=== PATIENT | male | born 1975 | race Caucasian/White ===

== ENCOUNTER 2016-12-01 22:13 | Emergency (ER) | payer MEDICAID ==
[2016-12-01 22:19] VITALS: BP 138/69; PULSE 69; RESP 20; TEMP 98.6
[2016-12-01] MEDS ORDERED: LIDOCAINE 1% INJ 10MG/ML (20 ML MDV) SQ STA (22:29)
--- NOTE | 2016-12-01 22:32 | ED ---
Wound/Laceration HPI - General Chief Complaint: Wound/Laceration Stated Complaint: head lac Time Seen by Provider: 12/01/16 22:21 Source: patient, RN notes reviewed Mode of arrival: ambulatory Limitations: no limitations - History of Present Illness Initial Comments: This is a 41-year-old male who sustained a laceration to his left parietal scalp from a wooden board. He states he was working on a wall when the board came down and struck him on top of the head. He denies any pain. He denies any loss of consciousness, no vision or hearing changes, no neck pain, no other injuries, tetanus status is up-to-date per patient. No other injuries. No immunosuppression. Injury occurred about 1-1/2 hours prior to arrival. - Related Data Home Medications Medication Instructions Recorded Confirmed No Known Home Medications [No 12/01/16 12/01/16 Known Home Medications] Allergies Allergy/AdvReac Type Severity Reaction Status Date / Time No Known Allergies Allergy Verified 12/01/16 22:17 Review of Systems ROS Statement: Those systems with pertinent positive or pertinent negative responses have been documented in the HPI. ROS Other: All systems not noted in ROS Statement are negative. Past Medical History Past Medical History: No Reported History History of Any Multi-Drug Resistant Organisms: None Reported Past Surgical History: No Surgical Hx Reported Past Psychological History: No Psychological Hx Reported Smoking Status: Never smoker Past Alcohol Use History: Occasional Past Drug Use History: None Reported General Exam - General Exam Comments Initial Comments: Well-developed, well-nourished 41-year-old male in no distress Limitations: no limitations General appearance: alert, in no apparent distress Head exam: Present: other (Patient has a 3 cm laceration to left parietal scalp. There is no surrounding tenderness or step-off. No crepitus. No foreign body.) Eye exam: Present: normal appearance ENT exam: Present: normal exam, mucous membranes moist Neck exam: Present: normal inspection, full ROM Respiratory exam: Present: normal lung sounds bilaterally. Absent: respiratory distress, wheezes, rales, rhonchi, stridor Cardiovascular Exam: Present: regular rate, normal rhythm, normal heart sounds. Absent: systolic murmur, diastolic murmur, rubs, gallop, clicks Neurological exam: Present: alert, oriented X3, CN II-XII intact Psychiatric exam: Present: normal affect, normal mood Skin exam: Present: warm, dry Course Vital Signs 12/01/16 22:18 Temperature 98.6 F Pulse Rate 69 Respiratory 20 Rate Blood Pressure 138/69 O2 Sat by Pulse 98 Oximetry Procedures - Laceration Laceration #1 Consent Obtained: verbal consent Time Out Performed: No Indication: laceration Site: scalp, other (Left parietal) Size (cm): 3 Description: linear Depth: simple, single layer Anesthetic Used: lidocaine 1% Anesthesia Technique: local infiltration Amount (mls): 2 Type of Sutures: other ([place]) Number of Sutures: 6 Patient Tolerated Procedure: well, no complications Medical Decision Making - Medical Decision Making Patient arrives with an isolated scalp laceration. No loss of consciousness, no neurologic deficits, no headache. No pain. Patient educated on signs and symptoms of infection and return parameters. Disposition Clinical Impression: Laceration of scalp without complication Disposition: HOME SELF-CARE Condition: Good Instructions: Staple Care (ED), Head Injury (ED) Additional Instructions: Suture removal in 10-11 days Referrals: Domenico Hardy MD [Primary Care Provider] - 1-2 days Time of Disposition: 22:52
[2016-12-01] MEDS ORDERED: DIPH,PERTUS(ACELL)TETVAC-LF 0.5 ML VIAL IM ONE (22:50)
== END 2016-12-01 23:17 | disposition home or self-care (01) ==
LOC: EC 22:13
DX: S01.01XA Laceration without foreign body of scalp, initial encounter (principal); Z23 Encounter for immunization; W20.8XXA Other cause of strike by thrown, projected or falling object, initial encounter; Y93.89 Activity, other specified
CPT/HCPCS: 90715; 99282; 12002; 90471; J2001

== ENCOUNTER → 2017-12-28 | Outpatient (CLI) | payer MEDICAID ==
[2017-12-28 07:10] LABS: Basophils % (A) 0 %; Eosinophils # (A) 0.1 k/uL (0-0.7); Eosinophils % (A) 2 %; HCT 48.2 % (39.0-53.0); HGB 16.9 gm/dL (13.0-17.5); Lymphocytes # (A) 1.2 k/uL (1.0-4.8); Lymphocytes % (A) 38 %; MCH 30.3 pg (25.0-35.0); MCHC 35.2 g/dL (31.0-37.0); MCV 86.1 fL (80.0-100.0); Mean Platelet Volume 8.2; Monocytes # (A) 0.2 k/uL (0-1.0); Monocytes % (A) 6 %; Neutrophils # (A) 1.7 k/uL (1.3-7.7); Neutrophils % (A) 52 %; Platelet Count 185 k/uL (150-450); RDW 13.2 % (11.5-15.5); WBC 3.2 k/uL (3.8-10.6)
[2017-12-28 07:20] LABS: ALT 68 U/L (21-72); AST 38 U/L (17-59); Albumin 4.1 g/dL (3.5-5.0); Alkaline Phosphatase 75 U/L (38-126); Anion Gap 8 mmol/L; Blood Urea Nitrogen 17 mg/dL (9-20); Calcium 9.3 mg/dL (8.4-10.2); Carbon Dioxide 27 mmol/L (22-30); Chloride 104 mmol/L (98-107); Cholesterol 181 mg/dL (<200); Glucose 146 mg/dL (74-99); HDL Cholesterol 25 mg/dL (40-60); Potassium 5.3 mmol/L (3.5-5.1); Sodium 139 mmol/L (137-145); Total Bilirubin 0.8 mg/dL (0.2-1.3); Total Protein 6.8 g/dL (6.3-8.2)
[2017-12-28 07:31] LABS: Triglycerides 879 mg/dL (<150)
[2017-12-28 07:46] LABS: Appearance,Urine Clear (Clear); Bilirubin,Urine Negative (Negative); Blood,Urine Trace (Negative); Color,Urine Yellow; Glucose,Urine (UA) Negative (Negative); Ketones,Urine Negative (Negative); Leukocyte Esterase,Urine Negative (Negative); Mucus,Urine Rare /hpf; Nitrite,Urine Negative (Negative); PH, Urine 5.5 (5.0-8.0); Protein,Urine Negative (Negative); RBC,Urine 1 /hpf (0-5); Specific Gravity,Urine 1.025 (1.001-1.035); Urobilinogen,Urine <2.0 mg/dL (<2.0)
== END | disposition home or self-care (01) ==
LOC: LABWHC1 06:34
PROVIDERS: ATTEND Family Medicine
DX: Z00.01 Encounter for general adult medical examination with abnormal findings (principal)
CPT/HCPCS: 36415; 80053; 80061; 81001; 82306; 85025

== ENCOUNTER → 2018-01-01 | Outpatient (CLI) | payer MEDICAID ==
[2018-01-01 09:23] LABS: Basophils % (A) 1 %; Eosinophils # (A) 0.1 k/uL (0-0.7); Eosinophils % (A) 4 %; HCT 48.6 % (39.0-53.0); HGB 16.8 gm/dL (13.0-17.5); Lymphocytes # (A) 1.2 k/uL (1.0-4.8); Lymphocytes % (A) 35 %; MCH 29.9 pg (25.0-35.0); MCHC 34.5 g/dL (31.0-37.0); MCV 86.8 fL (80.0-100.0); Mean Platelet Volume 7.5; Monocytes # (A) 0.2 k/uL (0-1.0); Monocytes % (A) 5 %; Neutrophils # (A) 1.8 k/uL (1.3-7.7); Neutrophils % (A) 55 %; Platelet Count 170 k/uL (150-450); RDW 13.2 % (11.5-15.5); WBC 3.3 k/uL (3.8-10.6)
== END | disposition home or self-care (01) ==
LOC: LABWHC1 08:44
PROVIDERS: ATTEND Family Medicine
DX: R89.9 Unspecified abnormal finding in specimens from other organs, systems and tissues (principal)
CPT/HCPCS: 36415; 84132; 85025

== ENCOUNTER → 2018-01-03 | Outpatient (CLI) | payer MEDICAID | END | disposition home or self-care (01) | LOC: LABWHC1 09:24 | PROVIDERS: ATTEND Family Medicine | DX: R82.8 Abnormal findings on cytological and histological examination of urine (principal); R31.21 Asymptomatic microscopic hematuria | CPT/HCPCS: 88108 ==

== ENCOUNTER → 2018-02-19 | Outpatient (CLI) | payer MEDICAID ==
--- NOTE | 2018-02-20 08:26 | US ---
EXAMINATION TYPE: US kidneys/renal and bladder DATE OF EXAM: 02/19/2018 COMPARISON: NONE CLINICAL HISTORY: Hematuria R31.21. EXAM MEASUREMENTS: Right Kidney: 12.9 x 5.6 x 5.6 cm Left Kidney: 13.7 x 4.9 x 5.7 cm Right Kidney: No hydronephrosis or masses seen, measures large Left Kidney: No hydronephrosis or masses seen, measures large Bladder: wnl Incidental finding splenomegaly. There is no evidence for hydronephrosis at this point in time. No nephrolithiasis is seen. No amanda s are identified. The urinary bladder is anechoic. Bilateral ureteral jets are seen. Cortical medullary differentiation is maintained. The liver shows a coarse echotexture. IMPRESSION: Splenomegaly. Renal sizes as described. There may be underlying hepatocellular disease, hepatic steat osis.
== END | disposition home or self-care (01) ==
LOC: RADUSWWP 16:05
PROVIDERS: ATTEND Family Medicine
DX: R16.1 Splenomegaly, not elsewhere classified (principal)
CPT/HCPCS: 76770

== ENCOUNTER → 2019-08-06 | Outpatient (CLI) | payer BC ==
--- NOTE | 2019-08-06 07:52 | US ---
EXAMINATION TYPE: US liver DATE OF EXAM: 08/06/2019 COMPARISON: Prior renal ultrasound February 19, 2018 CLINICAL HISTORY: R74.8 abnormal serum levels. EXAM MEASUREMENTS: Liver Length: 19.6 cm Gallbladder Wall: 0.2 cm CBD: 0.4 cm Right Kidney: 13.0 x 4.3 x 5.2 cm Pancreas: Obscured by bowel gas Liver: Coarse, heterogeneous echotexture. Enlarged. Hypoechoic area adjacent to gallbladder measurin g 1.7 x 0.6 x 0.9 cm, probable focal fatty sparing Gallbladder: wnl Evidence for sonographic Mckoy's sign: No CBD: wnl as visualized Right Kidney: No hydronephrosis or masses seen Suboptimal evaluation of pancreas on images saved due to overlying bowel gas per technologist. Liver redemonstrates markedly heterogeneous hyperechoic appearance similar to prior ultrasound. Evaluation for focal masses suboptimal due to the heterogeneity. More hypoechoic area near gallbladder fossa. St [place] favored diffuse fatty infiltration with focal fatty sparing. Gallbladder seen without shadowin g mobile gallstones. No hydronephrosis in the right kidney. IMPRESSION: Marked fatty infiltration of liver is redemonstrated. Patient may benefit with US elastog enrique to further assess.
== END | disposition home or self-care (01) ==
LOC: RADUSWWP 06:53
PROVIDERS: ATTEND Family Medicine
DX: K76.0 Fatty (change of) liver, not elsewhere classified (principal)
CPT/HCPCS: 76705

== ENCOUNTER → 2019-10-17 | Outpatient (CLI) | payer BC ==
[2019-10-17 07:39] LABS: Basophils % (A) 1 %; Eosinophils # (A) 0.1 k/uL (0-0.7); Eosinophils % (A) 2 %; HCT 48.4 % (39.0-53.0); HGB 16.4 gm/dL (13.0-17.5); Lymphocytes % (A) 30 %; MCH 29.5 pg (25.0-35.0); MCHC 33.9 g/dL (31.0-37.0); MCV 87.2 fL (80.0-100.0); Mean Platelet Volume 8.4; Monocytes # (A) 0.2 k/uL (0-1.0); Monocytes % (A) 7 %; Neutrophils # (A) 1.9 k/uL (1.3-7.7); Neutrophils % (A) 58 %; Platelet Count 183 k/uL (150-450); RBC 5.56 m/uL (4.30-5.90); RDW 13.3 % (11.5-15.5); WBC 3.3 k/uL (3.8-10.6)
[2019-10-17 11:50] LABS: Protein, Total 6.1 g/dL (6.2-8.2)
[2019-10-17 11:51] LABS: % Iron Saturation 25.16 (15.00-50.00); African American GFR (CKD) 105.6 (60.0-200.0); Albumin 4.3 g/dL (3.80-4.90); Albumin/Globulin Ratio 2.15 (1.60-3.17); Calcium 9.5 mg/dL (8.7-10.3); Chol/HDL Ratio 4.74; LDL Cholesterol,Calculated 68.8 mg/dL (0.0-131.0); Non-African American GFR(CKD) 91.1 (60.0-200.0); Potassium 4.5 mmol/L (3.5-5.5); Total Bilirubin 0.8 mg/dL (0.2-1.2); Total Protein 6.3 g/dL (6.2-8.2); VLDL Calculation 47.2 mg/dL (5.00-40.00)
[2019-10-17 11:58] LABS: Ferritin 244.1 ng/mL (22.0-322.0)
[2019-10-17 12:36] LABS: Hepatitis A Antibody IgM Non-Reactive (Non-Reactive); Hepatitis B Core IgM Non-Reactive (Non-Reactive); Hepatitis B Surface Antigen Non-Reactive (Non-Reactive); Hepatitis C IgG Antibody Non-Reactive (Non-Reactive)
[2019-10-17 12:59] LABS: Ceruloplasmin 19.5 mg/dL (20.0-60.0)
[2019-10-17 17:56] LABS: Gliadin AB IgA, Deaminated NEGATIVE (NEGATIVE); Gliadin AB IgA, Unit 1.7 U/mL; Gliadin AB IgG, Deaminated NEGATIVE (NEGATIVE)
[2019-10-18 12:28] LABS: Liver/Kidney Microsome Antibod 2.1 UNITS (<=20)
[2019-10-18 14:25] LABS: Albumin 4.06 g/dL (3.80-4.90); Gamma Globulin 0.81 g/dL (0.70-1.50)
== END | disposition home or self-care (01) ==
LOC: LABWHC1 07:07
PROVIDERS: ATTEND Internal Medicine
DX: R74.8 Abnormal levels of other serum enzymes (principal)
CPT/HCPCS: 36415; 80053; 80061; 80074; 82103; 82390; 82728; 83516; 83540; 83550; 84165; 85025; 86038; 86376

== ENCOUNTER → 2019-11-18 | Outpatient (CLI) | payer BC | END | disposition home or self-care (01) | LOC: LABWHC1 10:00 | PROVIDERS: ATTEND Internal Medicine | DX: E88.01 Alpha-1-antitrypsin deficiency (principal) | CPT/HCPCS: 36415; 82103 ==